=== PATIENT | female | born 1995 | race African-American/Black ===

== ENCOUNTER 2017-04-07 21:12 | Emergency (ER) | payer OTHER ==
[~2017-04-07] VITALS: Ht 172.7 cm
[~2017-04-07 21:12] MED LIST: IBU-6600 MG PO; MOTRIN400 MG PO
[2017-04-07 21:20] VITALS: BP 151/75
[2017-04-07 21:39] LABS: BILIRUBIN NEGATIVE (NEGATIVE); BLOOD NEGATIVE (NEGATIVE); CLARITY CLEAR (CLEAR); COLOR YELLOW (YELLOW); GLUCOSE 3+ (NEGATIVE); KETONE NEGATIVE (NEGATIVE); LEUKO ESTERASE NEGATIVE (NEGATIVE); NITRITE NEGATIVE (NEGATIVE); SPECIFIC GRAVITY 1.025 (1.005-1.030); UROBILINOGEN 0.2 E.U./dl (0.2-1.0)
[2017-04-07 21:48] LABS: EPITHELIAL CELLS 20-25
[2017-04-07 22:47] LABS: BASO % 0.3 % (0.0-1.0); EOS # 0.4 10*3/uL (0.0-0.4); EOS % 3.3 % (1.0-4.0); HEMATOCRIT 34.4 % (37.0-47.0); HEMOGLOBIN 10.4 g/dl (12.0-16.0); LYMPH # 3.3 10*3/uL (1.3-4.4); LYMPH % 31.6 % (27.0-41.0); MEAN CELL VOLUME 74.6 fl (81.0-99.0); MEAN CORPUSCULAR HGB 22.6 pg (27.0-31.0); MEAN CORPUSCULAR HGB CONC 30.2 g/dl (33.0-37.0); MEAN PLATELET VOLUME 10.3 fl (9.6-12.3); MONO # 0.6 10*3/uL (0.1-1.0); MONO % 5.6 % (3.0-9.0); NEUT # 6.2 10*3/uL (2.3-7.9); NEUT % 58.6 % (47.0-73.0); PLATELET COUNT AUTOMATED 320 10*3/uL (130-400); RED BLOOD COUNT 4.61 10*6/uL (4.10-5.10); RED CELL DISTRI WIDTH 17.1 % (0-14.5); WHITE BLOOD COUNT 10.6 10*3/uL (4.8-10.8)
[2017-04-07 22:59] LABS: BUN 8 mg/dl (7-24); CHLORIDE 107 mmol/L (98-107); CREATININE 0.86 mg/dL (0.55-1.02); POTASSIUM 3.7 mmol/L (3.5-5.1); SODIUM 139 mmol/L (136-145)
== END 2017-04-07 23:50 | disposition home or self-care (01) ==
LOC: ED 21:12
PROVIDERS: Emergency Medicine Emergency Medical Services
DX: O99.011 Anemia complicating pregnancy, first trimester (principal); D50.9 Iron deficiency anemia, unspecified; O24.419 Gestational diabetes mellitus in pregnancy, unspecified control; Z98.890 Other specified postprocedural states; Z3A.08 8 weeks gestation of pregnancy

== ENCOUNTER 2018-05-28 15:25 | Emergency (ER) | payer OTHER ==
[~2018-05-28] VITALS: Ht 165.1 cm; Wt 54.4 kg
[2018-05-28 15:26] VITALS: BP 118/60
[2018-05-28 16:12] LABS: BILIRUBIN NEGATIVE (NEGATIVE); CLARITY CLOUDY (CLEAR); COLOR YELLOW (YELLOW); GLUCOSE NEGATIVE (NEGATIVE); KETONE NEGATIVE (NEGATIVE)
[2018-05-28 16:13] LABS: BLOOD 3+ (NEGATIVE); LEUKO ESTERASE 3+ (NEGATIVE); NITRITE NEGATIVE (NEGATIVE); UROBILINOGEN 0.2 E.U./dl (0.2-1.0); WBC TNTC wbc/hpf (0-5)
[2018-05-28 16:14] LABS: BACTERIA 3+
[2018-05-28] MEDS ORDERED: KEFLEX500 M1 PO (16:23)
[2018-05-28] MEDS ORDERED: PYRIDIUM100 MG PO (16:23)
== END 2018-05-28 17:05 | disposition home or self-care (01) ==
LOC: ED 15:25
PROVIDERS: Emergency Medicine
DX: N39.0 Urinary tract infection, site not specified (principal); Z87.440 Personal history of urinary (tract) infections

== ENCOUNTER 2018-05-31 13:37 | Emergency (ER) | payer OTHER ==
[~2018-05-31] VITALS: Ht 165.1 cm; Wt 54.4 kg
[~2018-05-31 13:37] MED LIST changes: +KEFLEX500 M1 PO; +PYRIDIUM100 MG PO
[2018-05-31 13:42] VITALS: BP 120/69
== END 2018-05-31 15:06 | disposition home or self-care (01) ==
LOC: ED 13:37
DX: Z32.02 Encounter for pregnancy test, result negative (principal)

== ENCOUNTER 2018-06-22 14:40 | Emergency (ER) | payer OTHER ==
[~2018-06-22] VITALS: Ht 165.1 cm; Wt 54.4 kg
[2018-06-22 14:40] VITALS: BP 107/67
[2018-06-22 16:22] LABS: BILIRUBIN NEGATIVE (NEGATIVE); BLOOD 2+ (NEGATIVE); CLARITY CLOUDY (CLEAR); COLOR YELLOW (YELLOW); GLUCOSE NEGATIVE (NEGATIVE); KETONE TRACE (NEGATIVE); LEUKO ESTERASE 2+ (NEGATIVE); NITRITE NEGATIVE (NEGATIVE); PH 5.5 (5.0-9.0); SPECIFIC GRAVITY 1.025 (1.005-1.030); UROBILINOGEN 0.2 E.U./dl (0.2-1.0)
[2018-06-22 16:38] LABS: WBC TNTC wbc/hpf (0-5)
[2018-06-22] MEDS ORDERED: SEPTDS PO (17:02)
== END 2018-06-22 17:15 | disposition home or self-care (01) ==
LOC: ED 14:40
PROVIDERS: Physician Assistant
DX: N39.0 Urinary tract infection, site not specified (principal); Z79.2 Long term (current) use of antibiotics; Z79.899 Other long term (current) drug therapy; Z90.49 Acquired absence of other specified parts of digestive tract

== ENCOUNTER 2018-07-05 19:23 | Emergency (ER) | payer OTHER ==
[~2018-07-05] VITALS: Ht 165.1 cm; Wt 54.4 kg
[~2018-07-05 19:23] MED LIST changes: +SEPTDS PO
[2018-07-05 19:29] VITALS: BP 134/56
[2018-07-05] MEDS ORDERED: IBUPROFEN600 MG PO (20:31)
[2018-07-05] MEDS ORDERED: AMOXICILLIN500 M2 PO (20:31)
== END 2018-07-05 20:40 | disposition home or self-care (01) ==
LOC: ED 19:23
DX: S02.5XXA Fracture of tooth (traumatic), initial encounter for closed fracture (principal); X58.XXXA Exposure to other specified factors, initial encounter; Y93.89 Activity, other specified; Y92.89 Other specified places as the place of occurrence of the external cause; Y99.8 Other external cause status

== ENCOUNTER 2019-02-26 22:57 | Emergency (ER) | payer OTHER ==
[~2019-02-26] VITALS: Ht 165.1 cm; Wt 68.0 kg
[~2019-02-26 22:57] MED LIST changes: +AMOXICILLIN500 M2 PO; +IBUPROFEN600 MG PO; +MIRALAX POWDER17 G1 PO
[2019-02-26 22:59] VITALS: BP 127/77
[2019-02-28] MEDS ORDERED: AMINOPHYLLIN200 MG PO (20:01)
== END 2019-02-26 23:22 | disposition home or self-care (01) ==
LOC: ED 22:57
DX: R11.0 Nausea (principal); Z32.02 Encounter for pregnancy test, result negative; Z79.2 Long term (current) use of antibiotics; Z79.899 Other long term (current) drug therapy; Z90.49 Acquired absence of other specified parts of digestive tract

== ENCOUNTER 2020-03-12 16:01 | Emergency (ER) | payer OTHER ==
[~2020-03-12] VITALS: Wt 68.0 kg
[~2020-03-12 16:01] MED LIST changes: +AMINOPHYLLIN200 MG PO
[2020-03-12 16:09] VITALS: BP 116/78
== END 2020-03-12 17:05 | disposition home or self-care (01) ==
LOC: ED 16:01
DX: N91.2 Amenorrhea, unspecified (principal)

== ENCOUNTER 2020-03-24 21:18 | Emergency (ER) | payer OTHER ==
[~2020-03-24] VITALS: Ht 165.1 cm; Wt 60.3 kg
[2020-03-24 21:35] LABS: BASO % 0.1 % (0.0-1.0); EOS # 0.1 10*3/uL (0.0-0.4); EOS % 0.6 % (1.0-4.0); HEMATOCRIT 39.7 % (37.0-47.0); LYMPH # 1.7 10*3/uL (1.3-4.4); LYMPH % 20.2 % (27.0-41.0); MEAN CELL VOLUME 78.6 fl (81.0-99.0); MEAN CORPUSCULAR HGB 23.6 pg (27.0-31.0); MEAN PLATELET VOLUME 10.1 fl (9.6-12.3); MONO # 0.5 10*3/uL (0.1-1.0); MONO % 6.3 % (3.0-9.0); NEUT # 6.2 10*3/uL (2.3-7.9); NEUT % 72.6 % (47.0-73.0); PLATELET COUNT AUTOMATED 356 10*3/uL (130-400); RED BLOOD COUNT 5.05 10*6/uL (4.10-5.10); RED CELL DISTRI WIDTH 13.9 % (0-14.5); WHITE BLOOD COUNT 8.6 10*3/uL (4.8-10.8)
[2020-03-24 21:52] LABS: ALBUMIN 3.7 gm/dl (3.1-4.5); ALKALINE PHOSPHATASE 93 U/L (45-117); BUN 9 mg/dl (7-24); CHLORIDE 105 mmol/L (98-107); CREATININE 1.01 mg/dL (0.55-1.02); POTASSIUM 3.4 mmol/L (3.5-5.1); SGOT/AST 7 IU/L (3-35); SGPT/ALT 13 U/L (12-78); SODIUM 138 mmol/L (136-145); TOTAL PROTEIN 7.9 gm/dL (6.4-8.2)
[2020-03-24 22:06] LABS: BILIRUBIN NEGATIVE; CLARITY TURBID (CLEAR); COLOR YELLOW (YELLOW); GLUCOSE 3+; KETONE 1+
[2020-03-24 22:07] LABS: BLOOD 3+ (NEGATIVE); LEUKO ESTERASE 2+ (NEGATIVE); NITRITE NEGATIVE (NEGATIVE); RBC TNTC rbc/hpf (0-2); SPECIFIC GRAVITY >= 1.030 (1.001-1.030); WBC TNTC wbc/hpf (0-5)
[2020-03-24] MEDS ORDERED: MACROBID100 M1 PO (22:09)
[2020-03-24 22:18] VITALS: BP 113/53
== END 2020-03-24 22:20 | disposition home or self-care (01) ==
LOC: ED 21:18
PROVIDERS: Nurse Practitioner Family
DX: N39.0 Urinary tract infection, site not specified (principal); R73.9 Hyperglycemia, unspecified; Z79.899 Other long term (current) drug therapy

== ENCOUNTER 2020-05-22 14:55 | Emergency (ER) | payer OTHER ==
[~2020-05-22] VITALS: Wt 63.5 kg
[~2020-05-22 14:55] MED LIST changes: +MACROBID100 M1 PO
[2020-05-22 15:16] VITALS: BP 132/66
== END 2020-05-22 15:47 | disposition home or self-care (01) ==
LOC: ED 14:55
DX: S61.210A Laceration without foreign body of right index finger without damage to nail, initial encounter (principal); W45.8XXA Other foreign body or object entering through skin, initial encounter; Y93.89 Activity, other specified; Y92.89 Other specified places as the place of occurrence of the external cause; Y99.8 Other external cause status

== ENCOUNTER 2020-12-18 15:18 | Emergency (ER) | payer OTHER ==
[~2020-12-18] VITALS: Ht 165.1 cm; Wt 52.2 kg
[2020-12-18 15:22] VITALS: BP 114/67
[2020-12-18] MEDS ORDERED: ZOLOFT25 MG PO (15:44)
[2020-12-18] MEDS ORDERED: ABILIFY2 MG PO (15:45)
== END 2020-12-18 16:48 | disposition home or self-care (01) ==
LOC: ED 15:18
DX: F32.9 Major depressive disorder, single episode, unspecified (principal); Z98.890 Other specified postprocedural states; Z90.49 Acquired absence of other specified parts of digestive tract

== ENCOUNTER 2021-02-08 16:00 | Emergency (ER) | payer OTHER ==
[~2021-02-08 16:00] MED LIST changes: +ABILIFY2 MG PO; +ZOLOFT25 MG PO
[2021-02-08 16:26] VITALS: BP 122/52
[2021-02-08 17:56] LABS: BASO % 0.3 % (0.0-1.0); EOS # 0.1 10*3/uL (0.0-0.4); HEMATOCRIT 40.2 % (37.0-47.0); LYMPH # 3.3 10*3/uL (1.3-4.4); LYMPH % 41.3 % (27.0-41.0); MEAN CELL VOLUME 71.4 fl (81.0-99.0); MEAN CORPUSCULAR HGB 21.7 pg (27.0-31.0); MEAN CORPUSCULAR HGB CONC 30.3 g/dl (33.0-37.0); MEAN PLATELET VOLUME 10.4 fl (9.6-12.3); MONO # 0.4 10*3/uL (0.1-1.0); MONO % 4.9 % (3.0-9.0); NEUT # 4.1 10*3/uL (2.3-7.9); NEUT % 52.4 % (47.0-73.0); PLATELET COUNT AUTOMATED 380 10*3/uL (130-400); RED BLOOD COUNT 5.63 10*6/uL (4.10-5.10); RED CELL DISTRI WIDTH 18.9 % (0-14.5); WHITE BLOOD COUNT 7.9 10*3/uL (4.8-10.8)
[2021-02-08 18:14] LABS: ALBUMIN 3.8 gm/dl (3.1-4.5); ALKALINE PHOSPHATASE 121 U/L (45-117); BUN 7 mg/dl (7-24); CHLORIDE 96 mmol/L (98-107); CREATININE 1.11 mg/dL (0.55-1.02); LIPASE 193 U/L (73-393); POTASSIUM 3.8 mmol/L (3.5-5.1); SGOT/AST 8 IU/L (3-35); SGPT/ALT 14 U/L (12-78); SODIUM 127 mmol/L (136-145)
[2021-02-08 18:16] LABS: BILIRUBIN Negative (Negative); BLOOD Negative (Negative); CLARITY Clear (Clear); COLOR Yellow (Yellow); GLUCOSE 3+ (Negative); KETONE Negative (Negative); LEUKO ESTERASE Negative (Negative); NITRITE Negative (Negative); PH 5.5 (4.5-8.0); SPECIFIC GRAVITY >= 1.030 (1.001-1.030); UROBILINOGEN 0.2 E.U./dl (0.0-1.0)
[2021-02-08 18:24] LABS: BACTERIA 1+; RBC 0-2 rbc/hpf (0-2)
[2021-02-08 18:25] LABS: WBC 0-2 wbc/hpf (0-5)
== END 2021-02-08 22:00 | disposition home or self-care (01) ==
LOC: ED 16:00
PROVIDERS: Emergency Medicine
DX: O99.281 Endocrine, nutritional and metabolic diseases complicating pregnancy, first trimester (principal); E87.8 Other disorders of electrolyte and fluid balance, not elsewhere classified; R73.9 Hyperglycemia, unspecified; Z3A.01 Less than 8 weeks gestation of pregnancy

== ENCOUNTER → 2021-05-11 | Outpatient (CLI) | payer OTHER | END | disposition home or self-care (01) | LOC: US 16:00 | PROVIDERS: ATTEND Nurse Practitioner Women's Health | DX: O36.8390 Maternal care for abnormalities of the fetal heart rate or rhythm, unspecified trimester, not applicable or unspecified (principal) ==

== ENCOUNTER 2022-06-13 13:39 | Emergency (ER) | payer OTHER ==
[~2022-06-13] VITALS: Wt 67.1 kg
[2022-06-13 14:24] VITALS: BP 123/60
== END 2022-06-13 16:30 | disposition home or self-care (01) ==
LOC: ED 13:39
DX: B34.9 Viral infection, unspecified (principal); Z20.822 Contact with and (suspected) exposure to COVID-19; Z79.899 Other long term (current) drug therapy; Z90.49 Acquired absence of other specified parts of digestive tract; Z98.890 Other specified postprocedural states

== ENCOUNTER → 2023-03-06 | Outpatient (CLI) | payer OTHER | END | disposition home or self-care (01) | LOC: US 14:30 | PROVIDERS: ATTEND Nurse Practitioner Women's Health | DX: N93.8 Other specified abnormal uterine and vaginal bleeding (principal) ==

== ENCOUNTER 2024-05-12 15:27 | Emergency (ER) | payer OTHER ==
[~2024-05-12] VITALS: Ht 160 cm; Wt 60.8 kg
[2024-05-12 16:16] VITALS: BP 124/62
[2024-05-12 16:41] LABS: BASO % 0.3 % (0.0-1.0); EOS # 0.2 10*3/uL (0.0-0.4); EOS % 3.3 % (1.0-4.0); HEMATOCRIT 41.4 % (37.0-47.0); LYMPH # 2.9 10*3/uL (1.3-4.4); LYMPH % 49.5 % (27.0-41.0); MEAN CELL VOLUME 86.8 fl (81.0-99.0); MEAN CORPUSCULAR HGB 27.5 pg (27.0-31.0); MEAN CORPUSCULAR HGB CONC 31.6 g/dl (33.0-37.0); MEAN PLATELET VOLUME 9.9 fl (9.6-12.3); MONO # 0.3 10*3/uL (0.1-1.0); MONO % 4.8 % (3.0-9.0); NEUT # 2.4 10*3/uL (2.3-7.9); NEUT % 41.9 % (47.0-73.0); PLATELET COUNT AUTOMATED 337 10*3/uL (130-400); RED BLOOD COUNT 4.77 10*6/uL (4.10-5.10); RED CELL DISTRI WIDTH 13.6 % (0-14.5); WHITE BLOOD COUNT 5.8 10*3/uL (4.8-10.8)
[2024-05-12 17:00] LABS: BUN 5 mg/dl (9-23); CHLORIDE 105 mmol/L (98-107); POTASSIUM 3.9 mmol/L (3.4-5.1)
[2024-05-12 17:08] LABS: BETA-HCG, QUANT < 3.0 mIU/mL (3-10)
== END 2024-05-12 18:25 | disposition home or self-care (01) ==
LOC: ED 15:27
PROVIDERS: Physician Assistant Medical
DX: N92.0 Excessive and frequent menstruation with regular cycle (principal); E11.9 Type 2 diabetes mellitus without complications; D64.9 Anemia, unspecified; R10.2 Pelvic and perineal pain; Z90.49 Acquired absence of other specified parts of digestive tract; Z98.890 Other specified postprocedural states

== ENCOUNTER 2025-05-24 00:10 | Emergency (ER) | payer OTHER ==
[~2025-05-24] VITALS: Ht 170.1 cm; Wt 72.6 kg
[2025-05-24 00:34] VITALS: BP 122/74
[2025-05-24] MEDS ORDERED: Acetaminophen/Hydrocodone 5 MG/325 MG TABLET PO ONE (00:35)
[2025-05-24] MEDS ORDERED: PENICILLIN V POTASSIUM 500 MG TAB PO ONE (00:35)
[2025-05-24] MEDS ORDERED: Ondansetron Hydrochloride 4 MG TAB SL ONE (00:35)
[2025-05-24] MEDS ORDERED: PENICILLIN VK500 MG PO (00:38)
== END 2025-05-24 00:49 | disposition home or self-care (01) ==
LOC: ED 00:10
DX: K02.9 Dental caries, unspecified (principal); Z90.49 Acquired absence of other specified parts of digestive tract; Z98.890 Other specified postprocedural states; Z87.440 Personal history of urinary (tract) infections